=== PATIENT | female | born 1950 | race Caucasian/White ===

== ENCOUNTER 2018-03-15 16:04 | Inpatient (IN) | payer OTHER ==
--- NOTE | 2018-03-15 16:45 | EDPHY ---
H & P Stated Complaint: Leg swelling/fatigue/SOB Time Seen by Provider: 03/15/18 16:27 HPI/ROS: CHIEF COMPLAINT: Fatigue, shortness of breath HISTORY OF PRESENT ILLNESS: The patient is a 67-year-old female who denies significant past medical history. She reports having a fever and body aches around [place] time and states that she never fully recovered. She has had decreased appetite. She has been staying in bed. She feels weak and short of breath if she tries to get up and walk. No focal pain. No abdominal pain. No vomiting or GI symptoms. No headache. No chest pain. No shortness of breath at rest. No recent fevers. Has not noticed any blood in her stool. No urinary symptoms. No cancer history. Severity: Moderate Modifying factors: None REVIEW OF SYSTEMS: Constitutional: See HPI denies: chills, fever, recent illness, recent injury EENTM: denies: blurred vision, double vision, nose congestion Respiratory: denies: cough, shortness of breath Cardiac: denies: chest pain, irregular heart rate, lightheadedness, palpitations Gastrointestinal/Abdominal: denies: abdominal pain, diarrhea, nausea, vomiting, blood streaked stools Genitourinary: denies: dysuria, frequency, hematuria, pain Musculoskeletal: See HPI denies: joint pain, muscle pain Skin: denies: lesions, rash, jaundice, bruising Neurological: denies: headache, numbness, paresthesia, tingling, dizziness, weakness Hematologic/Lymphatic: denies: blood clots, easy bleeding, easy bruising Immunologic/allergic: denies: HIV/AIDS, transplant 10 systems reviewed and negative except as noted EXAM: GENERAL: Pale, no acute distress HEAD: Atraumatic, normocephalic. EYES: Pupils equal round and reactive to light, extraocular movements intact, sclera anicteric, conjunctiva pale. ENT: TMs normal, nares patent, oropharynx clear without exudates. Moist mucous membranes. NECK: Normal range of motion, supple without lymphadenopathy or JVD. LUNGS: Breath sounds clear to auscultation bilaterally and equal. No wheezes rales or rhonchi. HEART: Regular rate and rhythm without murmurs, rubs or gallops. ABDOMEN: Soft, nontender, normoactive bowel sounds. No guarding, no rebound. No masses appreciated. BACK: No CVA tenderness, no spinal tenderness, step-offs or deformities EXTREMITIES: Normal range of motion, mild 1+ pitting. No clubbing or cyanosis. NEUROLOGICAL: Cranial nerves II through XII grossly intact. Normal speech, normal gait. 5/5 strength, normal movement in all extremities, normal sensation , normal reflexes PSYCH: Normal mood, normal affect. SKIN: Extremely pale, Warm, dry, normal turgor, no visible rashes or lesions. Source: Patient, Family Exam Limitations: No limitations - Personal History Current Tetanus/Diphtheria Vaccine: No - Medical/Surgical History Hx Asthma: No Hx Chronic Respiratory Disease: No Hx Diabetes: No Hx Cardiac Disease: No Hx Renal Disease: No Hx Cirrhosis: No Hx Alcoholism: No Other PMH: Denies - Family History Significant Family History: No pertinent family hx - Social History Smoking Status: Never smoked Alcohol Use: None Constitutional: Initial Vital Signs Heart Rate 95 03/15/18 16:13 Respiratory Rate 18 03/15/18 16:13 Blood Pressure 127/47 H 03/15/18 16:13 O2 Sat (%) 100 03/15/18 16:13 O2 Delivery Mode Room Air Allergies/Adverse Reactions: amoxicillin Allergy (Verified 03/15/18 16:19) Home Medications: Medication Instructions Recorded Melatonin [Melatonin 3 MG (*)] 3 mg PO HS PRN 03/15/18 Medical Decision Making - Diagnostics EKG Interpretation: An EKG obtained and was read and documented in trace view. Please see trace view for full reading and report. Sinus rhythm, no acute ischemic changes no previous for comparison ED Course/Re-evaluation: The patient is significantly anemic as expected. I have ordered 2 units of blood for transfusion. Her rectal occult stool is negative. Will admit for further workup. I discussed the case with hospitalist who will admit. Bedside ultrasound does not reveal any significant cardiac effusion. Differential Diagnosis: Partial list of the Differential diagnosis considered include but were not limited to; rectal cancer, rectal bleed, myeloma, anemia, pericardial effusion and although unlikely based on the history and physical exam, I also considered infection, arrhythmia, acute coronary disease, CHF. - Data Points Laboratory Results: Laboratory Results 03/15/18 16:55 03/15/18 16:30 03/15/18 16:55 Smear Review By Mare NATARAJAN MD Medications Given: Ferrous Fumarate/Vit C/Docusate Sod (Tylor-Sequels 65 Mg) 1 each PO BID DIVINE Stop: 09/12/18 08:59 Last Admin: 03/16/18 10:18 Dose: 1 each Ferric Sodium Gluconate Complex 125 mg/ Sodium Chloride 110 mls @ 110 mls/hr IV DAILY DIVINE Stop: 09/12/18 08:59 Last Admin: 03/16/18 09:56 Dose: 110 mls Discontinued Medications Furosemide (Lasix Injection) 20 mg IVP ONCE ONE Stop: 03/16/18 13:57 Last Admin: 03/16/18 14:03 Dose: 20 mg Departure - Departure Disposition: [facility] Inpatient Acute Clinical Impression: Severe anemia Condition: Fair
[2018-03-15 16:52] LABS: INR 1.34 (0.83-1.16); PROTIME(PATIENT) 16.8 SEC (12.0-15.0)
--- NOTE | 2018-03-15 17:08 | CPEKG ---
Test Reason : OPEN Blood Pressure : / mmHG Vent. Rate : 089 BPM Atrial Rate : 089 BPM P-R Int : 165 ms QRS Dur : 097 ms QT Int : 406 ms P-R-T Axes : 062 048 -02 degrees QTc Int : 495 ms Sinus rhythm Probable left atrial enlargement Borderline T abnormalities, anterior leads Confirmed by Timoteo Maguire ([id number]) on 03/15/2018 5:07:12 PM Referred By: Timoteo Maguire Confirmed By:Timoteo Maguire
[2018-03-15 17:47] LABS: PLATELET COUNT 431 10^3/uL (150-400)
[2018-03-15] MEDS ORDERED: ONDANSETRON DISINTEGRATING 4 MG TAB PO PRN (18:03)
[2018-03-15] MEDS ORDERED: ACETAMINOPHEN 325 MG TAB PO PRN (18:03)
[2018-03-15] MEDS ORDERED: ONDANSETRON 4 MG/2 ML VIAL IVP PRN (18:03)
[2018-03-15] MEDS ORDERED: HYDROCODONE/APAP 5/325 TAB PO PRN (18:03)
[2018-03-15] MEDS ORDERED: MELATONIN 3 MG TAB PO PRN (22:51)
--- NOTE | 2018-03-16 01:19 | GHP ---
[f rep st] HISTORY AND PHYSICAL DATE OF ADMISSION: 03/15/2018 CHIEF COMPLAINT: Fatigue and shortness of breath. HISTORY OF PRESENT ILLNESS: The patient is a pleasant 67-year-old female with no major past medical history who presented to the [facility] Emergency Room with complaints of progressive fatigue over the past 4-6 weeks. She was found to have a hemoglobin of 2.5 with MCV of 61 and is be ing admitted for further evaluation. She does note a habit of chewing on ice over the past year. Sh kurtis denies any craving for dirt. Her notes that over the past 4-6 weeks she has been sleeping more and more sedentary. She had a Hemoccult performed in the emergency room, which was reportedly n egative. She does report a family history of colon cancer in 1 of her brothers when he was in his 20 s. PAST MEDICAL HISTORY: No major past medical history. PAST SURGICAL HISTORY: None. MEDICATIONS: None. ALLERGIES: Amoxicillin. FAMILY HISTORY: Patient reports a brother dying of colon cancer when he was in his 20s. SOCIAL HISTORY: The patient is currently . She has 2 children. She is a nonsmoker. 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 REVIEW OF SYSTEMS: CONSTITUTIONAL: Positive for fatigue and approximate 20 pounds weight loss over the prior months. ENT: No recent upper respiratory illnesses. CARDIOVASCULAR: No complaints of an y chest pains, palpitations, or syncopal episodes. RESPIRATORY: Positive for subjective shortness o f breath. GI: No focal abdominal pain. No bloody stools. No melena. : No reports of any diffi culty with urination. NEUROLOGIC: No complaints of any headaches or focal weakness. HEMATOLOGIC: No history of any deep vein thrombosis or pulmonary embolism. PSYCHIATRIC: No history of anxiety or depression. ENDOCRINE: No history of polyuria or heat intolerance. SKIN: No new skin rashes. MU SCULOSKELETAL: No focal joint pains. PHYSICAL EXAM: VITAL SIGNS: The patient is afebrile. Blood pressure 127/47, heart rate 95, respira tions 18, satting 100% on room air. GENERAL: Patient appears notably pale on exam but is awake, samantha rt, conversant, able to provide a good history. HEENT: Extraocular movements appear intact. No scl eral icterus is noted. Pale mucous membranes. NECK: Supple. No thyroid enlargement is appreciated . CHEST: Clear to auscultation with normal respiratory effort. HEART: Regular rate and rhythm. N o murmurs. ABDOMEN: Soft, nontender, nondistended. No splenomegaly. : No Ashby catheter in plac e. EXTREMITIES: Pitting edema noted of both ankles. NEUROLOGIC: Cranial nerves 2-12 appear grossl y intact with 5/5 strength in extremities. LABS: White blood cell count 8, hemoglobin 2.5, platelets 431, MCV 61. Sodium 133, potassium 3.8, c hloride 103, bicarb 116, BUN 12, creatinine 0.7, glucose 143 INR 1.3. AST 20, ALT 26, alkaline phosp hatase 176, bilirubin is 1.1, unconjugated bilirubin 0.7, lipase 126, albumin 3.4, total protein is 6 .3. Hemoccult negative. Vitamin B12 872, folate greater than 20. Ferritin 4.8, total iron binding capacity 394. Serum iron 14, iron saturation 4. IMAGING: Chest x-ray findings suggestive of heart failure/fluid overload, cardiomegaly, pulmonary va scular congestion and bilateral pleural effusions with bibasilar atelectasis. Superimposed pneumonia cannot be radiographically excluded. ASSESSMENT/PLAN: Anemia-patient presents with severe iron deficiency anemia. The source is uncertai n at the current time. She has normal white blood cell count and platelets are not low. Considering this, I do not think this would point to a primary bone marrow issue. I did review the case with Dr Mikhail Juárez with Hematology-Oncology and for now we will start replacing and supplementing iron and can plan on outpatient intravenous iron supplementation as well considering the severity of the anemia. I also reviewed her case with Dr. Estrada with gastroenterology in light of her family history of colon cancer with her brother having colon cancer in his 20s and dying from this. Even though her hemoccu lt here in the emergency room is negative, I do think endoscopy to obtain biopsies to look for celiac disease as well as colonoscopy would be prudent. We discussed that this could be done as an outpati ent or here in the hospital. I think if patient remains stable, this could be arranged for outpatien t. However, if patient is felt to be unreliable for outpatient followup we may want to consider yaquelin perez it while she is here in the hospital. I have started intravenous and oral iron today and 2 units o f blood has been ordered by the emergency room already. I recommend cautiously transfusing her as he r chest x-ray did suggest heart failure. DVT prophylaxis, compression devices. No heparin or Lovenox for now in light of concern for bleeding . DISPOSITION: I recommend admission under inpatient status considering her severe anemia and the fact we are transfusing blood and her chest x-ray shows potential for congestive heart failure, and I thi nk she will need close monitoring over the subsequent 2-3 days. /[id number]/MODL
[2018-03-16 05:06] LABS: PLATELET COUNT 260 10^3/uL (150-400)
[2018-03-16] MEDS: SODIUM FERRIC GLUCONAT/SUCROSE 125 MG in NS 100 ML IV SCH (09:56)
--- NOTE | 2018-03-16 09:56 | PDMN ---
Medical Necessity Medical necessity: [facility] M35 Anemia, Iron Deficiency or Unspecified, A-1 day: 67 yo c/o fatigue. Eval shows severe anemia w/ H/H 2.5/10.4, unclear etiology. PRBC transfusions and IV iron started, hem/onc and GI consults. Per MD IP admit for severe anemia and CXR which shows potential for CHF w/ transfusions. Close monitoring required over next 2-3 days.
--- NOTE | 2018-03-16 10:08 | HOSPPROG ---
Hospitalist Progress Note Assessment/Plan: Iron def anemia - presented with hgb 2.5, up to 4.4 after 2 units prbc's, receiving IV iron. Fortunately, she is hemodynamically stable. +fam hx colon cancer in brother, who in his 20's -cont transfusion until hgb >7, currently receiving unit #4, recheck h&h at 1400 -needs egd/colonoscopy, planning for tomorrow am -cont IV iron Hyponatremia - mild, improved with volume, likely was hypovolemic -follow ?HF - CXR pers reviewed/interp, suggestive of mild volume overload, BNP quite elevated and also note heart murmur -check echo to eval valves and LV function as we aggressively transfuse her -IV Lasix now Full code Dispo - cont inpt, needs ongoing transfusion, cardiac eval and further GI eval in am Subjective: Pt feels fine. Energy level much improved. Denies orthopnea or PND , but does endorse pedal edema. No CP or SOB at rest. Denies h/o BRBPR, melena , vaginal bleeding or vomiting. Note family h/o colon cancer in brother at age 20. Objective: Vital Signs Temp Pulse Resp BP Pulse Ox 36.7 C 78 24 H 133/70 H 95 03/16/18 09:11 03/16/18 09:11 03/16/18 09:11 03/16/18 09:11 03/16/18 09:11 Laboratory Results 03/16/18 04:30 03/16/18 04:30 03/15/18 03/16/18 03/17/18 05:59 05:59 05:59 Intake Total 450 Balance 450 PT 16.8 SEC (12.0-15.0) H 03/15/18 16:30 INR 1.34 (0.83-1.16) H 03/15/18 16:30 - Physical Exam Constitutional: no apparent distress Eyes: PERRL Ears, Nose, Mouth, Throat: moist mucous membranes Cardiovascular: regular rate and rhythym, systolic murmur Respiratory: no respiratory distress, clear to auscultation Gastrointestinal: normoactive bowel sounds, soft, non-tender abdomen Skin: warm Musculoskeletal: full muscle strength, other (1+ b/l pedal edema) Neurologic: AAOx3 Psychiatric: interacting appropriately ICD10 Worksheet Patient Problems: Problems Problem Status Onset Severe anemia Acute
[2018-03-16] MEDS: FERRO-SEQUELS 65 MG TAB.ER PO SCH ×2 (10:18→20:47)
[2018-03-16] MEDS ORDERED: PEG 3350/NA SULF,BICARB,CL/KCL (GAVILYTE-G) 4000 ML BTL PO ONE ×2 (10:52→17:00)
--- NOTE | 2018-03-16 11:48 | GCON ---
[f rep st] CONSULTATION DATE OF CONSULTATION: 03/16/2018 REFERRING PHYSICIAN: Umesh Young MD CHIEF COMPLAINT: Anemia, iron deficiency. Dear Dr. Young: Thank you very kindly for asking me to evaluate Mrs. Micheline Lucas in consultation for a chief complaint of iron-deficiency anemia. This is new onset. She has no real significant past medical history and presents to the emergency room mostly with progressive fatigue and difficulty with breathing that calixto s been present ever since [place], but worsening. She tried to have a vacation up in [place] with her family for her anniversary but was super fatigued and could not really function wel l. This has been worsening, and so she presents to the ER for evaluation. She was found to have a h emoglobin on admission in the ER of 2.5 with a hematocrit of 10.4, an MCV of 61.5, and a normal white blood count and a slightly elevated platelet count. This is all consistent with an iron-deficiency anemia. She denies any real gastrointestinal symptoms, specifically denying heartburn or dysphagia. There has been no abdominal pain, no melena or hematochezia. She does have chronic constipation whi ch has been unchanged. She has a family history of colon cancer in her brother at an early age of on set in his 50s. She supposedly had a colonoscopy in her early 50s that she says was normal. She has been receiving blood since admission, and her hematocrit this morning is 15.2. She still complains of feeling very fatigued. I am asked to assist with further evaluation and management. PAST MEDICAL HISTORY: Significant for 2 vaginal births. She has had 2 benign breast lumpectomies. PAST SURGICAL HISTORY: A colonoscopy reportedly in her early 50s, which was normal. 2 breast biopsi es which were benign. MEDICATIONS: On admission are none other than melatonin. She occasionally takes an [id number] laxative for constipation. ALLERGIES: To amoxicillin, which caused hives. FAMILY HISTORY: Significant for colon cancer in a brother in his early 50s. No history of anemia or celiac disease. REVIEW OF SYSTEMS: CONSTITUTIONAL: Fatigue. She had had a fever over [place] and reportedly had "the flu." She thinks this has resolved. PULMONARY: A bit of shortness of breath at rest and worse with exertion. CARDIOVASCULAR: She denies any palpitations. She denies any orthopnea. No chest p ain, no palpitations. GI: Chronic constipation. She denies melena, hematochezia, heartburn, dyspha ashvin, or abdominal pain. There has been no diarrhea. RHEUMATOLOGIC: Negative for joint pain. DERMA TOLOGIC: Negative for jaundice. NEURO: Negative for focal motor weakness. She does feel diffusely weak. No seizure activity. No falls. No headache. No visual disturbance. ENDOCRINE: No heat or cold intolerance. No neck pain. No history of thyroid problems. GENITOURINARY: She denies any fl ank pain or hematuria. GYNECOLOGIC: Denies vaginal bleeding. LYMPH: Denies any adenopathy or glan dular swelling. SOCIAL HISTORY: No tobacco, no alcohol. 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 She is . She has twins. She lives in [place] with her family. PHYSICAL EXAM: VITAL SIGNS: Blood pressure is 121/65, heart rate 77, oxygenation is 97% on 1 L nasa l cannula with a respiratory rate of 18, temperature is 36.8. GENERAL: Somewhat fatigued-appearing elderly female in no acute distress. HEENT: Normocephalic, atraumatic. Sclerae anicteric. No cinthia tuan petechiae. Gingival mucosa is normal without hypertrophy. NECK: Supple without adenopathy. No thyromegaly. No jugular venous distention or bruit. PULMONARY: Clear to auscultation bilaterally without rales or wheeze. CARDIOVASCULAR: Regular rate and rhythm. No murmur, rub, or gallop. GI: Abdomen is soft, nondistended. No ascites. No organomegaly. No palpable mass or lesion. No tende rness, rebound, or guarding. No herniation. MUSCULOSKELETAL: No joint deformity, swelling, or warm th. DERMATOLOGIC: No jaundice. No rash. No hives. No arterial venous malformations. NEURO: Meg rt to person, place, and time. Cranial nerves seem grossly intact. Speech is fluent, and mood is ap propriate. Motor exam is nonfocal. LABORATORY DATA: Database includes the following: This morning's white blood count is 5.6, hematocr it is 15.2 after transfusion, platelets are 260. Sodium 134, potassium 3.7, chloride 106, bicarbonat e 23, BUN 12, creatinine 0.7, calcium 8.1, iron is 14 with a ferritin of 4.8, and a percent iron satu ration of 4. Alkaline phosphatase is elevated at 176. Total bilirubin is 1.1, AST 20, ALT 26, album in 3.4, total protein 6.2. Lipase is 126. Vitamin B12 is 872. Folate is greater than 20. TSH is 2 .5. Serum protein electrophoresis is pending. Stool is negative for occult blood. Urinalysis is ne gative for blood. INR is 1.34 with a PT of 16.8. IMPRESSION: 1. Anemia, microcytic and consistent with iron deficiency. 2. Low albumin and total protein. 3. Mild coagulopathy. 4. Fatigue, likely secondary to new-onset anemia, that is quite profound. RECOMMENDATIONS: 1. Transfusion to a hematocrit of close to 25 would be preferable. 2. Diet is as tolerated. 3. She will require iron supplementation after transfusion. IV iron loading can be considered, alth ough the transfusions will likely provide her with a good iron source. 4. The etiology of her iron-deficiency anemia is unknown but will require upper endoscopy with small -bowel biopsies and a colonoscopy, especially in light of her family history of colon cancer in a 1st degree relative. 5. I have recommended that she perform these procedures while hospitalized to expedite her care, but she is considering going home after transfusion and scheduling these as an outpatient, which I can c ertainly arrange early next week and is acceptable as long as she feels clinically well enough and he r hematocrit responds to transfusion, especially as there is no active bleeding. 6. It is unclear how long she has been iron deficient. She has had no blood work last year and does not have a routine primary care, so this may be more of an sfuvc-[id number]-[id number] exacerbation of her symp toms. 7. It does not appear that she has other bone marrow cell lines that are abnormal, but a myelodyspla stic syndrome or other bone marrow process is also a possibility and may require hematology consultat ion if we are unable to find the source endoscopically. 8. For now, Mrs. Lucas would like to talk this over with her family, predominantly her , and s he will make decisions about the timing of her intervention. If she would like to proceed with these evaluations while hospitalized, I have asked the primary team to call me, and we will arrange for he r diet and bowel preparation. 9. I have discussed this with her primary team today, Dr. Umesh Young. 10. Thank you for allowing me to be involved in her care. Further recommendations to follow. /[id number]/MODL
--- NOTE | 2018-03-16 13:04 | ECHO ---
[email or web address] [address] Main: [phone] Fax: [email or web address] Echocardiogram Name: BEV FRENCH MR#: [id number] Study Date: 03/16/2018 Study Time: 08:46 AM Date of : 1950 Age: 67 year(s) Height: 157.5 cm (62 in.) Weight: 63.5 kg (140 lb.) BSA: 1.64 m2 Gender: Female Examination: Echo Indication: CXR suggests HF/receiving transfusions/eval LV function Image Quality: Excellent Contrast: Requested by: Obdulia Kelly BP: 124 mmHg/65 mmHg Heart Rate: Rhythm: Indication: CXR suggests HF/receiving transfusions/eval LV function Procedure Staff Chorus Dancer: Patricia Snell RD Reading Physician: Uvaldo Loya MD Requesting Provider: Conclusions: Mild concentric LV hypertrophy. Normal global systolic LV function. The ejection fraction is estimated to be 55-60 %. Diastolic dysfunction is present. . Upper normal size right ventricle. The left atrium is severely dilated. Cannot R/O PFO noted by color flow doppler.. The right atrium is moderately to severely dilated. Moderate to severe mitral regurgitation. Mod to severe calcified posterior mitral leaflet. MRO .31cm2. Moderate to severe tricuspid valve regurgitation. RVSP is 41mmHG.. Measurements: Chambers Valvular Assessment AV/MV Valvular Assessment TV/PV Normal Normal Normal Name Value Range Name Value Range Name Value Range Ao Julia (MM): 3.0 cm (2.2 cm-3.7 AV Vmax: 1.38 m/s (1 m/s-1.7 TR Vmax: 3.26 mm/s ( - ) cm) m/s) TR PGmax: 43 mmHg ( - ) IVSd (2D): 1.1 cm (0.6 cm-1.1 AV meanP mmHg ( - ) syst. PAP: 53 mmHg ( - ) cm) BETTY (VTI): 2.7 cm ( - ) LVDd (2D): 5.5 cm (3.9 cm-5.3 MV E Vmax: 1.11 m/s ( - ) cm) MV A Vmax: 0.87 m/s ( - ) LVDs (2D): 3.4 cm (2.1 cm-4 MV E/A: 1.28 ( - ) cm) MV meanP mmHg ( - ) LVPWd (2D): 1.2 cm ( - ) MVA (Vmax): 2.5 m/s ( - ) LVOTd 2.1 cm 2.1 cm mm LVEF (BP): 59 % (>=55 %) EF Range: 55-60 % Patient: BEV FRENCH Study Date: 03/16/2018 Page 1 of 2 08:46 AM Continued Measurements: Chambers Valvular Assessment AV/MV Valvular Assessment TV/PV Name Value Name Value Name Value LADs: 5.0 cm MV Annulus: 3.8 cm CVP (est.): 10 mmHg LADs Lon.1 cm MV E' Septal: 0.06 m/s LA Area: 31.1 cm2 MV E/E' Septal: 18.10 LA Volume: 114 ml MV E/E' Lateral: 11.00 LA Volume Index: 69.5 ml/m2 MV VTI: 30.70 cm MR Vena Contracta: 0.4 cm MR ERO: 0.310 cm2 MR PISA radius: 9 mm MR Reg. Volume: 62 ml MR Reg. Fraction: 18 % Additional Vessels Name Value Ao Ascendin.3 cm Findings: Left Ventricle: Normal size left ventricle. Mild concentric LV hypertrophy. Normal global systolic LV function. The ejection fraction is estimated to be 55-60 %. Diastolic dysfunction is present. . Right Ventricle: Upper normal size right ventricle. Left Atrium: The left atrium is severely dilated. Cannot R/O PFO noted by color flow doppler.. Right Atrium: The right atrium is moderately to severely dilated. Mitral Valve: Moderate to severe mitral regurgitation. Mod to severe calcified posterior mitral leaflet. MRO .31cm2. Aortic Valve: The aortic valve is normal in appearance and function. The aortic valve is tri-leaflet. There is no aortic valve regurgitation. Tricuspid Valve: The tricuspid valve is normal in appearance and function. Moderate to severe tricuspid valve regurgitation. The pulmonary artery pressure is mildly increased. RVSP is 41mmHG.. Pulmonic Valve: The pulmonic valve is normal in appearance and function. Trivial pulmonic valve regurgitation. Aorta: The aorta is normal. Pericardium: No pericardial effusion. Left side pleural effusion. (No Signature Object) Patient: BEV FRNECH Study Date: 03/16/2018 Page 2 of 2 08:46 AM [id number]
[2018-03-16] MEDS ORDERED: FUROSEMIDE 20 MG/2 ML VIAL IVP ONE (13:56)
--- NOTE | 2018-03-16 14:34 | GCON ---
[f rep st] CONSULTATION HEMATOLOGY ONCOLOGY CONSULTATION NOTE REASON FOR CONSULTATION: Severe microcytic anemia. HISTORY OF PRESENT ILLNESS: The patient is a very pleasant 67-year-old female who is admitted for further evaluation of severe microcytic anemia. Generally, the patient has not been under recent medical care. She presented to the emergency room last evening with symptoms of increasing fatigue. This particularly was more severe over the last 6 weeks and even more so over the last week. On presentation, she was found to have a normal white blood cell count and normal differential with a hemoglobin of 2.5 and an MCV of 61 and a hematocrit of 10. Her platelet count was slightly elevated. She denied any abdominal pain or any GI symptoms. There has been no history of blood loss. She denies any vaginal bleeding or hematuria. She denies any significant weight loss in the last 6 months. No fever, no night sweats. Hemoccult in the emergency room was negative. She denies any chest pain. She has some mild dyspnea with exertion. She was given 2 units of blood last evening and is currently receiving IV iron. She was given an additional 2 units early this morning. PAST MEDICAL HISTORY: Unremarkable. PAST SURGICAL HISTORY: Unremarkable. FAMILY HISTORY: Her brother had colon cancer in his 20s. He is currently in his 60s and alive and well. SOCIAL HISTORY: She is . 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 She has 2 children. She is a nonsmoker. REVIEW OF SYSTEMS: CONSTITUTIONAL: Notable for fatigue and weight loss a while ago that was more intentional as she was preparing for a wedding, but in the last several months there has been no weight loss. CARDIOVASCULAR: No chest pain. RESPIRATORY: Some dyspnea with exertion. GI: As per HPI, negative. MUSCULOSKELETAL: No bone pain. PHYSICAL EXAM: GENERAL: She is very comfortable, alert appearing female sitting in bed. VITAL SIGNS: Blood pressure is 114/56. Heart rate 85. O2 sat is 91% on room air. HEENT: Pupils equal. Sclerae anicteric. Oropharynx is clear. NECK: Supple with significant bilateral JVD. LUNGS: With bilateral crackles. HEART: Regular rate with 2/6 systolic murmur. ABDOMEN: Soft, nontender. No organomegaly. EXTREMITIES: 1+ edema. LABORATORY DATA: White blood cell count 5.6, hematocrit 15.2, platelet count 260 (it was 431 last night). The smear is notable for 3+ microcytic cells, 1+ schistocytes, 1+ keratocytes, 3+ hypochromia. Ferritin is 4.8, iron is 14, TIBC 394, 4% saturation. IMPRESSION: This is a 67-year-old female who presents with severe microcytic anemia with indices most consistent with iron deficiency. Of note, her B12 level is normal as is her folate. SPEP is pending. The normal white blood cell count and slightly elevated platelet count argues somewhat against an underlying bone marrow disorder. I explained to the patient and her family that I would expect complete normalization of the CBC as she gets replaced with iron in the coming weeks. If we do not see that, then a bone marrow biopsy would be a consideration. She appears to have some volume overload with the recent blood transfusions and will be getting an echocardiogram as well as diuresis. Her brother's history of colon cancer in his 20s is very suspicious for a Short syndrome picture. The patient should have an EGD and colonoscopy and if that is negative, then a small bowel capsule endoscopy. Whether or not this will be done in the hospital or as an outpatient is yet to be determined. She potentially could have an underlying malignancy as the cause of the anemia and iron deficiency. We will continue to follow along with you. /[id number]/MODL MTDD
--- NOTE | 2018-03-16 16:05 | ASMTCMCOM ---
CM Note CM Note Notes: 03/16/2018 Case Management Note Reviewed chart. Pt admitted for treatment of severe anemia. There are no therapy evals ordered at this time. Discharge needs and date are unclear at this time. Pt is and was independent with ADL's prior to admission. Anticipating independent discharge with follow up as directed. Case Management d/c poc: to be determined. Case Management to follow Date Signed: 03/16/2018 04:05 PM Electronically Signed By:Debbie Mtz RN
[2018-03-17 05:23] LABS: PLATELET COUNT 260 10^3/uL (150-400)
[2018-03-17] MEDS ORDERED: PEG 3350/NA SULF,BICARB,CL/KCL (GAVILYTE-G) 4000 ML BTL PO ONE (06:00)
[2018-03-17] MEDS: FERRO-SEQUELS 65 MG TAB.ER PO SCH ×2 (08:32→21:19)
[2018-03-17] MEDS: SODIUM FERRIC GLUCONAT/SUCROSE 125 MG in NS 100 ML IV SCH (08:32)
[2018-03-17] MEDS ORDERED: FUROSEMIDE 20 MG/2 ML VIAL IVP ONE (09:02)
--- NOTE | 2018-03-17 09:04 | HOSPPROG ---
Hospitalist Progress Note Assessment/Plan: Severe iron def anemia - presented with hgb 2.5, up to 7.2 after 4 units prbc' s. No e/o active bleeding. Fortunately, she has been hemodynamically stable. +fam hx colon cancer in brother, who in his 20's -cont IV iron -EGD/colonoscopy planned, discussed with Dr. Estrada, will defer procedure to tomorrow when cardiac/respiratory status is better optimized -clear liquids today, mag citrate tonight to complete prep, will follow and replace lytes Acute diastolic HF - BNP elevated with e/o volume overload on presenting CXR ( pers reviewed/inter). She still has crackles and JVD today, s/p IV lasix yest. Echo showed diastolic dysfunction, nl EF. -repeat IV Lasix, add oral K plus protocol -monitor I&O's, daily wts -cardiology to consult Hypoxemia - 2/2 above -diurese as above, wean O2 as able VHD - mod-severe MR and TR on echo -cardiology to consult today, discussed case with Dr. Loya Hyponatremia - mild, improved with volume, likely was hypovolemic -follow Full code Dispo - cont inpt, needs further cardiac and GI evaluations Subjective: Pt doing ok, on 2 LPM O2 this am. SHe appears SOB, but notes "it's this building". Denies orthopnea or PND, but she appears a bit orthopneic. No CP. Tolerating bowel prep. Says pedal edema is better. Objective: Vital Signs Temp Pulse Resp BP Pulse Ox 36.8 C 85 20 120/63 92 03/17/18 03:54 03/17/18 03:54 03/17/18 03:54 03/17/18 03:54 03/17/18 03:54 Laboratory Results 03/17/18 03:35 03/17/18 03:35 03/16/18 03/17/18 03/18/18 05:59 05:59 05:59 Intake Total 450 1500 Output Total 800 Balance 450 700 PT 16.8 SEC (12.0-15.0) H 03/15/18 16:30 INR 1.34 (0.83-1.16) H 03/15/18 16:30 - Physical Exam Constitutional: no apparent distress Eyes: PERRL Ears, Nose, Mouth, Throat: moist mucous membranes Cardiovascular: regular rate and rhythym, JVD Respiratory: no respiratory distress, inspiratory crackles Gastrointestinal: normoactive bowel sounds, soft, non-tender abdomen Skin: warm Musculoskeletal: full muscle strength Neurologic: AAOx3 Psychiatric: interacting appropriately ICD10 Worksheet Patient Problems: Problems Problem Status Onset Severe anemia Acute
[2018-03-17] MEDS ORDERED: PROTOCOL POTASSIUM 1 DOSE MISC PRN (09:08)
[2018-03-17] MEDS ORDERED: PROTOCOL MAGNESIUM 1 DOSE IV PRN (09:11)
[2018-03-17] MEDS ORDERED: POTASSIUM CL 20 MEQ TAB PO SCH (09:30)
--- NOTE | 2018-03-17 10:20 | SOAPPROG ---
KEERTHI Progress Note Assessment/Plan: Assessment: 1. Severe iron deficiency anemia-s/p 4 units PRBC and two doses of IV iron 2. CHF with severe MR-exacerbated by transfusions. 3. Family history of sibling with colon cancer in his 20's, suspicious for Short syndrome. Plan: 1. Hold on further RBC transfusions. 2. Volume overload-per hospitalist/cardiology. 3. EGD and colonoscopy-if negative, small bowel capsule endoscopy. 4. Will need additional IV iron as outpatient. 5. Consider DVT prophylaxis 03/17/18 10:17 03/17/18 10:22 Subjective: frustrated, feeling SOB, Objective: Vital Signs Temp Pulse Resp BP Pulse Ox 36.8 C 85 20 120/63 92 03/17/18 03:54 03/17/18 03:54 03/17/18 03:54 03/17/18 03:54 03/17/18 03:54 Laboratory Results 03/17/18 03:35 03/17/18 09:11 03/16/18 03/17/18 03/18/18 05:59 05:59 05:59 Intake Total 450 1500 Output Total 800 Balance 450 700 PT 16.8 SEC (12.0-15.0) H 03/15/18 16:30 INR 1.34 (0.83-1.16) H 03/15/18 16:30 Physical Exam - Physical Exam General Appearance: alert, no apparent distress Neck: other (JVD) Respiratory: other (decreased BS at bases with bilateral crackles) Abdomen: soft ICD10 Worksheet Patient Problems: Problems Problem Status Onset Severe anemia Acute
[2018-03-17] MEDS ORDERED: POTASSIUM CL 10 MEQ TAB PO ONE ×2 (10:27→18:58)
[2018-03-17] MEDS ORDERED: FUROSEMIDE 40 MG/4 ML VIAL IVP ONE ×2 (10:30→13:00)
--- NOTE | 2018-03-17 10:41 | SOAPPROG ---
SOAP Progress Note Assessment/Plan: Assessment: 1. YAMILE 2. Dyspnea 3. CHF Plan: 1. Cardiology consult today 2. Diuresis 3. Cancel EGD/Colonoscopy for today. Will tentatively plan for tomorrow AM 4. Clears today 5. IV iron infusion 6. AM CBC 7. Mgcitrate in AM to help make sure her bowel cleanse is good 8. Check AM lytes, Mg and phos. 9. NPO after midnight. 03/17/18 10:38 Subjective: CC: SOB No acute events. Upset that her procedures were postponed No hematochezia or melena. Prep is mostly clear this AM Objective: Vital Signs Temp Pulse Resp BP Pulse Ox 36.8 C 85 20 120/63 92 03/17/18 03:54 03/17/18 03:54 03/17/18 03:54 03/17/18 03:54 03/17/18 03:54 Laboratory Results 03/17/18 03:35 03/17/18 09:11 03/16/18 03/17/18 03/18/18 05:59 05:59 05:59 Intake Total 450 1500 Output Total 800 Balance 450 700 PT 16.8 SEC (12.0-15.0) H 03/15/18 16:30 INR 1.34 (0.83-1.16) H 03/15/18 16:30 Physical Exam - Physical Exam General Appearance: no apparent distress EENT: pharynx normal Neck: other (Elevated JVD) Respiratory: rales Cardiac/Chest: regular rate, rhythm, systolic murmur Abdomen: normal bowel sounds, non-tender, soft ICD10 Worksheet Patient Problems: Problems Problem Status Onset Severe anemia Acute
[2018-03-17] MEDS ORDERED: POTASSIUM CL 20 MEQ/15 ML UDCUP PO ONE (11:00)
--- NOTE | 2018-03-17 11:16 | GCON ---
[f rep st] CONSULTATION CARDIOLOGY CONSULTATION SUPERVISING SAMPLE HAND: Uvaldo Loya MD REASON FOR CONSULTATION: [id number] MR, fluid volume overload. HISTORY OF PRESENT ILLNESS: Patient is a pleasant 67-year-old female who presented to the ED 03/15/2018 for further evaluation of persistent weakness and fatigue. Symptoms started roughly 2 months ago after what she describes as flu- like symptoms ongoing for several weeks. After resolution of her flu-like symptoms, she reports that she never returned to baseline and continued to note reduced activity tolerance and generalized weakness and fatigue, which has been progressive over time. When she presented to the emergency department, her hemoglobin was 2.5, hematocrit 10, with an MCV of 61. Echocardiogram demonstrated LVEF 55% to 60%, severe left atrial dilation, [id number] MR, and moderate TR with right ventricular systolic pressure measuring 41 mmHg. She has had 4 units of packed red blood cells and 2 doses of IV iron for management of her severe iron deficiency anemia this hospitalization. EGD and colonoscopy have been ordered for further evaluation of her anemia. She also has symptoms of fluid volume overload, which has been exacerbated by transfusions. Prior to the onset of her fatigue and weakness in January, she denies any previous cardiovascular issues or concerns. She has no history of chest discomfort, dyspnea (until recently), orthopnea, palpitations, lightheadedness, dizziness, syncope, or presyncope. She has had BLE pitting edema for the past several weeks. PAST MEDICAL HISTORY: Unremarkable. PAST SURGICAL HISTORY: Unremarkable. FAMILY HISTORY: No familial cardiovascular history. 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 She is close to half-way. REVIEW OF SYSTEMS: GENERAL/CONSTITUTIONAL: Positive for fatigue and weakness. CARDIOVASCULAR: No chest discomfort, mild dyspnea. No orthopnea. BLE edema for the past several weeks. RESPIRATORY: [id number] dyspnea on exertion and at rest. She notes that her respiratory symptoms are worse with the dry air in hospital. GI: No abdominal pain or GI symptoms, and no history of blood loss. MUSCULOSKELETAL: Normal range of motion. No tenderness or discomfort. PHYSICAL EXAM: GENERAL: She is alert and oriented x4, in no apparent distress. VITAL SIGNS: Blood pressure 120/63, heart rate 85, respiratory rate 20, SpO2 92% on 2 L nasal cannula, temp 36.8 degrees Celsius. CARDIOVASCULAR: Regular rate and rhythm, S1, S2. No S3 or S4. Presence of a 2/6 systolic murmur with significant bilateral jugular venous distention. RESPIRATORY: Bilateral crackles. ABDOMEN: Soft, nontender. EXTREMITIES: 1+ bilateral lower extremity pitting edema. LABORATORY STUDIES: Drawn today: RBC 3.04, hemoglobin 7.1, hematocrit 23.1. Potassium 3.0, BMP otherwise stable. BNP 03/16 was 3370. IMPRESSION: 67-year-old female with severe microcytic anemia and moderate-to- severe mitral regurgitation with high demand congestive heart failure and fluid volume overload. PLAN: 1. Continue to diurese with Lasix 40 mg twice daily and continue to monitor electrolytes and fluid volume status. 2. Hold on EGD and colonoscopy this morning in the setting of marked fluid volume overload. Plan to re-evaluate tomorrow morning regarding endoscopy and colonoscopy given her fluid volume status at that time. 3. Plan to repeat echocardiogram when her hemoglobin is closer to 10 to re- evaluate MR at that time. 4. Cardiology will continue to follow. TIME SPENT ON CONSULTATION: Greater than 30 minutes. /[id number]/MODL MTDD
[2018-03-17] MEDS ORDERED: MAGNESIUM CITRATE 300 ML BOTTLE PO ONE (19:00)
[2018-03-18 05:23] LABS: PLATELET COUNT 215 10^3/uL (150-400)
[2018-03-18] MEDS ORDERED: MAGNESIUM CITRATE 300 ML BOTTLE PO ONE (06:00)
[2018-03-18] MEDS ORDERED: POTASSIUM CL 20 MEQ/15 ML UDCUP PO ONE ×2 (06:37→20:30)
--- NOTE | 2018-03-18 08:23 | HOSPPROG ---
Hospitalist Progress Note Assessment/Plan: Severe iron def anemia - presented with hgb 2.5, up to 7.7 after 4 units prbc' s. No e/o active bleeding. Fortunately, she has been hemodynamically stable. +fam hx colon cancer in brother, who in his 20's -cont IV iron -EGD/colonoscopy planned and pt is prepped. I recommend deferring this to outpt setting and tuning up her cardiopulmonary status given e/o ongoing volume overload with JVD, hypoxemia, and electrolyte abnormalities -defer further transfusions for now Acute diastolic HF - BNP was 3370 with e/o volume overload on presenting CXR ( pers reviewed/inter). Echo showed diastolic dysfunction, nl EF. She still has JVD and hypoxemia, s/p 80 mg IV lasix yest. Net neg 3.2 L overnight. Wt down 2.5 kg. -needs ongoing diuresis, cont IV Lasix 40 mg once daily -repeat bnp in am -recommend deferring procedure as above, will await cardiology eval for clearance / recs regarding timing of procedure -cont to monitor I&O's, daily wts Hypoxemia - 2/2 above, on 2 LPM this am -diurese as above, wean O2 as able VHD - mod-severe MR and TR on echo -cardiology following Hypokalemia - 2/2 diuresis -schedule potassium and cont to replace per protocol Hyponatremia - resolved Full code Dispo - cont inpt, needs further cardiac stabilization Subjective: Pt feels better. Denies CP, SOB or orthopnea. Note she seems to minimize symptoms, focuses on how healthy and active she generally is. Pedal edema better. No bloody stools or melena. No N/V. She is NPO, prepped for EGD /colonoscopy. Objective: Vital Signs Temp Pulse Resp BP Pulse Ox 36.8 C 91 18 126/69 H 93 03/18/18 07:40 03/18/18 07:40 03/18/18 07:40 03/18/18 07:40 03/18/18 07:40 Laboratory Results 03/18/18 03:35 03/18/18 03:35 03/17/18 03/18/18 03/19/18 05:59 05:59 05:59 Intake Total 1500 615 Output Total 800 3900 Balance 700 -3285 PT 16.8 SEC (12.0-15.0) H 03/15/18 16:30 INR 1.34 (0.83-1.16) H 03/15/18 16:30 - Physical Exam Constitutional: no apparent distress Eyes: PERRL Ears, Nose, Mouth, Throat: moist mucous membranes Cardiovascular: regular rate and rhythym, JVD Respiratory: no respiratory distress, reduced air movement Gastrointestinal: normoactive bowel sounds, soft, non-tender abdomen Skin: warm Musculoskeletal: full muscle strength Neurologic: AAOx3 Psychiatric: interacting appropriately ICD10 Worksheet Patient Problems: Problems Problem Status Onset Severe anemia Acute
--- NOTE | 2018-03-18 08:53 | PDANEPAE ---
ANE History of Present Illness here for EGD ANE Past Medical History - Pulmonary History Hx Oxygen in Use at Home: No Hx Sleep Apnea: No Sleep Apnea Screening Result - Last Documented: Negative - Endocrine History Hx Diabetes: No - Chronic Pain History Chronic Pain: No ANE Review of Systems Review of Systems: ANE Patient History - Allergies Allergies/Adverse Reactions: amoxicillin Allergy (Verified 03/15/18 16:19) - Home Medications Home Medications: Melatonin [Melatonin 3 MG (*)] 3 mg PO HS PRN 03/15/18 [Last Taken Unknown] - NPO status NPO Since - Liquids (Date): 03/18/18 NPO Since - Liquids (Time): 06:00 NPO Since - Solids (Date): 03/16/18 NPO Since - Solids (Time): 00:01 - Smoking Hx Smoking Status: Never smoked - Alcohol Use Alcohol Use: None ANE Labs/Vital Signs - Labs Result Diagrams: 03/18/18 03:35 03/18/18 03:35 - Vital Signs Blood Pressure: 126/69 Heart Rate: 91 Respiratory Rate: 18 O2 Sat (%): 93 Height: 157.48 cm Weight: 67.8 kg
[2018-03-18] MEDS ORDERED: POTASSIUM CL 20 MEQ/15 ML UDCUP PO SCH ×2 (09:00→14:00)
[2018-03-18] MEDS ORDERED: MAGNESIUM SULF 1 GM/DEXTROSE 100 ML IV ONE (09:17)
--- NOTE | 2018-03-18 09:35 | SOAPPROG ---
KEERTHI Progress Note Assessment/Plan: Assessment: 1) Iron deficiency anemia 2) Family h/o colon cancer (Brother age 20) Plan: Good response to PRBC transfusion and Iron infusion x 2. No further transfusion needed currently. She feels much better. Plan EGD / Colonoscopy today to evaluate for source of blood loss. She could probably be d/c after her procedure either this evening or tomorrow morning. Will plan outpatient follow up once d/c to assess need for additional iron. Plan d/w patient 03/18/18 09:22 Subjective: Feels "much better" after transfusion and IV iron. EGD / Colon planned for today Objective: Vital Signs Temp Pulse Resp BP Pulse Ox 36.8 C 91 18 126/69 H 93 03/18/18 07:40 03/18/18 08:53 03/18/18 08:53 03/18/18 08:53 03/18/18 08:53 Laboratory Results 03/18/18 03:35 03/18/18 03:35 03/17/18 03/18/18 03/19/18 05:59 05:59 05:59 Intake Total 1500 615 Output Total 800 3900 Balance 700 -3285 PT 16.8 SEC (12.0-15.0) H 03/15/18 16:30 INR 1.34 (0.83-1.16) H 03/15/18 16:30 - Time Spent With Patient Time Spent With Patient: 20 minutes Physical Exam - Physical Exam General Appearance: alert, no apparent distress EENT: pale conjunctiva (R), pale conjunctiva (L) Neuro/Psych: alert, normal mood/affect ICD10 Worksheet Patient Problems: Problems Problem Status Onset Severe anemia Acute
[2018-03-18] MEDS: POTASSIUM CL 20 MEQ/15 ML UDCUP PO SCH ×3 (11:02→20:28)
[2018-03-18] MEDS: FUROSEMIDE 40 MG/4 ML VIAL IVP SCH (11:02)
[2018-03-18] MEDS: FERRO-SEQUELS 65 MG TAB.ER PO SCH ×2 (11:03→20:27)
[2018-03-18] MEDS: SODIUM FERRIC GLUCONAT/SUCROSE 125 MG in NS 100 ML IV SCH (11:03)
--- NOTE | 2018-03-18 13:09 | PDCARPN ---
Cardiology Progress Note Chief Complaint: N/A Assessment/Plan: Assessment: Micheline is a 67 y/o F who presented to the hospital with fatigue and was found to be severely anemic with a hemoglobin of 2.5. She was transfused with 4 units of PRBC and then developed diastolic CHF. A echo showed preserved LV function with moderate to severe MR and TR. Plan: 1. Diastolic CHF- secondary to blood tranfusions. Improved with IV Lasix but she is still mildly volume overloaded. Continue IV Lasix today. Will probably be able to transition to PO or d/c tomorrow. 2. Valvular heart disease- moderate to severe MR and TR. Repeat echo in when she is more hemodynamically stable. 3. Anemia, severe- s/p 4 PRBC. She need a EGD and colonoscopy which was scheduled for this morning. Given that she is still in heart failure with increased O2 needs and is hypokalemic I would recommend holding off on her procedure. I think it is possible that she would be ready tomorrow. 4. hypokalemia- on supplemental potassium 03/18/18 13:15 Subjective: She denies any CP, SOB, or palpitations. Her edema has resolved. Reviewed/Discussed With: hospitalist Objective: Vital Signs (8 Hrs) Temp Pulse Resp BP Pulse Ox 03/18/18 08:53 91 18 126/69 H 93 03/18/18 07:40 36.8 C 91 18 126/69 H 93 03/18/18 07:28 36.8 C 91 18 126/69 H 93 Intake/Output (24 Hrs) 03/17/18 03/18/18 03/19/18 05:59 05:59 05:59 Intake Total 1500 615 Output Total 800 3900 Balance 700 -3285 Intake: Oral (ml) 1500 615 Output: Urine (ml) 800 1400 Bedside Commode 400 Toilet 800 1000 Liquid Stool (ml) 2500 Bedside Commode 2500 Other: Weight 70.307 kg 67.8 kg Urine pH Toilet 7.0 Number of Voids Bedside Commode 3 Toilet 7 Number of Stools Bedside Commode 15 Result Diagrams: 03/18/18 03:35 03/18/18 03:35 Telemetry: NSR - Physical Exam Constitutional: no apparent distress Cardiovascular: regular rate and rhythm, systolic murmur Respiratory: inspiratory crackles (B bases R>L) Skin: no edema Neurologic: AAOx3 ICD10 Worksheet Patient Problems: Problems Problem Status Onset Severe anemia Acute
[2018-03-18] MEDS ORDERED: POTASSIUM CL 10 MEQ TAB PO ONE (20:02)
[2018-03-19] MEDS ORDERED: MAGNESIUM CITRATE 300 ML BOTTLE PO ONE (06:33)
--- NOTE | 2018-03-19 08:45 | HOSPPROG ---
Hospitalist Progress Note Assessment/Plan: Severe iron def anemia - presented with hgb 2.5, up to 8.1 after 4 units prbc' s. No e/o active bleeding. Fortunately, she has been hemodynamically stable. +fam hx colon cancer in brother, who in his 20's -s/p 3 days IV iron, will change to oral iron -EGD/colonoscopy has been postponed past couple of days due to acute heart failure, hypoxemia and hypokalemia, all improved today -stable for procedure today, s/p mag citrate this am -defer further transfusions for now Acute diastolic HF - BNP was 3370 with e/o volume overload on presenting CXR despite profoundly low circulating volume. Echo showed diastolic dysfunction, nl EF. Net neg 5. Wt down 3.5 kg. -cont IV Lasix 40 mg once daily, can likely change to oral lasix tomorrow -cont to monitor I&O's, daily wts Hypoxemia - 2/2 above, decreased O2 requirement, down to 1 LPM -diurese as above, wean O2 as able VHD - mod-severe MR and TR on echo -cardiology following -repeat echo as outpt in 2-3 months Hypokalemia - 2/2 diuresis, resolved with aggressive replacement -cont K supplement with lasix Hyponatremia - resolved Full code Dispo - cont inpt, possible d/c tomorrow if volume status improved Subjective: Pt feels well. Pedal edema resolved. Denies CP, SOB, orthopnea or PND. No bloody stools or melena, has been on clears past couple of days s/p bowel prep. Objective: Vital Signs Temp Pulse Resp BP Pulse Ox 36.7 C 81 16 119/62 94 03/19/18 04:00 03/19/18 04:00 03/19/18 04:00 03/19/18 04:00 03/19/18 04:00 Laboratory Results 03/19/18 03:25 03/19/18 03:25 03/18/18 03/19/18 03/20/18 05:59 05:59 05:59 Intake Total 615 740 Output Total 3900 2300 Balance -3285 -1560 PT 16.8 SEC (12.0-15.0) H 03/15/18 16:30 INR 1.34 (0.83-1.16) H 03/15/18 16:30 - Physical Exam Constitutional: no apparent distress Eyes: PERRL Ears, Nose, Mouth, Throat: moist mucous membranes Cardiovascular: regular rate and rhythym Respiratory: no respiratory distress Gastrointestinal: normoactive bowel sounds, soft, non-tender abdomen Skin: warm Musculoskeletal: full muscle strength Neurologic: AAOx3 Psychiatric: interacting appropriately ICD10 Worksheet Patient Problems: Problems Problem Status Onset Severe anemia Acute
[2018-03-19] MEDS ORDERED: FERROUS SULFATE 325 MG TAB PO SCH (09:00)
--- NOTE | 2018-03-19 10:23 | PDCARPN ---
Cardiology Progress Note Chief Complaint: N/A Assessment/Plan: Assessment: Micheline is a 67 y/o F who presented to the hospital with fatigue and was found to be severely anemic with a hemoglobin of 2.5. She was transfused with 4 units of PRBC and then developed diastolic CHF. A echo showed preserved LV function with moderate to severe MR and TR. Plan: 1. Diastolic CHF- secondary to blood transfusions. Improved with IV Lasix but she is still mildly volume overloaded. Continue IV Lasix today. 2. Valvular heart disease- moderate to severe MR and TR. Repeat echo when she is more hemodynamically stable. 3. Anemia, severe- s/p 4 PRBC. She is scheduled for a EGD and colonoscopy this morning. Her heart failure is improving and her potassium normalized. Ok to proceed from a cardiac standpoint. 4. hypokalemia- improved, on supplemental potassium 03/19/18 10:19 Subjective: She denies any CP or SOB. She is anxious to get her GI testing done. Objective: Vital Signs (8 Hrs) Temp Pulse Resp BP Pulse Ox 03/19/18 08:00 36.7 C 83 18 134/73 H 97 03/19/18 04:00 36.7 C 81 16 119/62 94 Intake/Output (24 Hrs) 03/18/18 03/19/18 03/20/18 05:59 05:59 05:59 Intake Total 615 740 Output Total 3900 2300 Balance -3285 -1560 Intake: Oral (ml) 615 740 Output: Urine (ml) 1400 250 Bedside Commode 400 Toilet 1000 250 Liquid Stool (ml) 2500 Bedside Commode 2500 Urine/Stool Mix (ml) 0 Bedside Commode 205 Other: Weight 67 kg Number of Voids Bedside Commode 3 Number of Stools Bedside Commode 15 Result Diagrams: 03/19/18 03:25 03/19/18 03:25 Telemetry: NSR - Physical Exam Constitutional: no apparent distress Cardiovascular: regular rate and rhythm, systolic murmur Respiratory: inspiratory crackles (B bases) Gastrointestinal: no tenderness, no masses Skin: no edema Neurologic: AAOx3 ICD10 Worksheet Patient Problems: Problems Problem Status Onset Severe anemia Acute
--- NOTE | 2018-03-19 10:49 | ASMTCMCOM ---
CM Note CM Note Notes: Chart reviewed for discharge planning purposes. Patient normally independent with ADL's admitted with profound anemia. 4 Units PRBC attributed to diastolic heart failure. Severe MR. GI workup deferred at this time. No current needs identified. CM available should needs arise. Plan: dc to home with family when medically cleared. Date Signed: 03/19/2018 10:48 AM Electronically Signed By:Libby Monreal RN
[2018-03-19] MEDS: FUROSEMIDE 40 MG/4 ML VIAL IVP SCH (11:09)
[2018-03-19] MEDS ORDERED: LR 1,000 ML IV ONE (12:38)
--- NOTE | 2018-03-19 12:48 | PDANEPAE ---
ANE History of Present Illness iron deficiency anemi. admitted to hospital on 03/16/18 with hgb of 2.5 ANE Past Medical History - Cardiovascular History Hx Hypertension: No Hx Arrhythmias: No Hx Chest Pain: No Hx Coronary Artery / Peripheral Vascular Disease: No Hx CHF / Valvular Disease: No Hx Palpitations: No - Pulmonary History Hx COPD: No Hx Asthma/Reactive Airway Disease: No Hx Recent Upper Respiratory Infection: No Hx Oxygen in Use at Home: No Hx Sleep Apnea: No Sleep Apnea Screening Result - Last Documented: Negative - Endocrine History Hx Diabetes: No Hypothyroid: No Hyperthyroid: No Obesity: no - Neurological & Psychiatric Hx Hx Neurological and Psychiatric Disorders: No - Other Health History Other Health History: iron deficiency anemia - Chronic Pain History Chronic Pain: No ANE Review of Systems Review of systems is: negative Review of Systems: - Exercise capacity Exercise capacity: >=4 METS ANE Patient History - Allergies Allergies/Adverse Reactions: amoxicillin Allergy (Verified 03/15/18 16:19) - Home Medications Home Medications: Melatonin [Melatonin 3 MG (*)] 3 mg PO HS PRN 03/15/18 [Last Taken Unknown] - NPO status NPO Status: no food or drink >8 hours NPO Since - Liquids (Date): 03/18/18 NPO Since - Liquids (Time): 06:00 NPO Since - Solids (Date): 03/16/18 NPO Since - Solids (Time): 00:01 - Anes Hx Anes Hx: no prior problems - Smoking Hx Smoking Status: Never smoked - Alcohol Use Alcohol Use: None - Family Anes Hx Family Anes Hx: none ANE Labs/Vital Signs - Labs Result Diagrams: 03/19/18 03:25 03/19/18 03:25 - Vital Signs Vital Signs: reviewed preoperatively; see RN documention for details Blood Pressure: 139/81 Heart Rate: 83 Respiratory Rate: 18 O2 Sat (%): 94 Height: 157.48 cm Weight: 67 kg ANE Physical Exam - Airway Neck exam: FROM Mallampati Score: Class 1 Mouth exam: normal dental/mouth exam - Pulmonary Pulmonary: no respiratory distress - Cardiovascular Cardiovascular: regular rate and rhythym - ASA Status ASA Status: II ANE Anesthesia Plan Anesthesia Plan: GA with mask
[2018-03-19] MEDS ORDERED: PROPOFOL/EMULSION 500 MG/50 ML BOTTLE IV ONE (13:01)
--- NOTE | 2018-03-19 13:53 | GIREPORT ---
[facility] - Endoscopy Department Patient Name: Micheline Lucas Procedure Date: 03/19/2018 1:00 PM Patient Type: Inpatient Attending MD/ ER Physician: Matheus Estrada MD Procedure: Upper GI endoscopy Indications: Iron deficiency anemia Providers: Matheus Estrada MD Medicines: Propofol per Anesthesia Complications: No immediate complications. Description of Procedure: After obtaining informed consent, the endoscope was passed under direct vision. Throughout the procedure, the patient's blood pressure, pulse, and oxygen saturations were monitored continuously. The Endoscope was intro duced through the mouth, and advanced to the second part of duodenum. [facility] er GI endoscopy was accomplished without difficulty. The patient tolerated th e procedure well. Findings: The esophagus was normal. A large hiatal hernia was present. Multiple dispersed, Linear non-bleeding erosions were found in the dash karla fundus. There were no stigmata of recent bleeding. These are consistent with Edmond's erosions related to the large hiatal hernia The duodenal bulb, first portion of the duodenum and second portion of the duodenum were normal. Biopsies for histology were taken with a cold for ceps for evaluation of celiac disease. Estimated Blood Loss: Estimated blood loss: none. Post Op Diagnosis: - Normal esophagus. - Large hiatal hernia. - Edmond's erosions. This is not felt to be clinically a good explanat ion for her iron deficiency anemia. - Normal duodenal bulb, first portion of the duodenum and second portio n of the duodenum. Biopsied. Recommendation: - Await pathology results. - Perform a colonoscopy today. - [facility]. - Thank you for allowing me to be involved in the care of your patient. Attending Participation: I personally performed the entire procedure without the assistance of a fellow, resident or surg ical nurses assistant. Matheus Estrada MD Matheus Estrada MD 03/19/2018 1:53:08 PM This report has been signed electronicallyDavid MD Natalie Number of Addenda: 0 Note Initiated On: 03/19/2018 1:00 PM [email or web address]
[2018-03-19] MEDS ORDERED: NALOXONE HCL 0.4 MG/ML INJ IVP PRN (13:55)
--- NOTE | 2018-03-19 14:27 | GIREPORT ---
[facility] - Endoscopy Department Patient Name: Micheline Lucas Procedure Date: 03/19/2018 1:01 PM Patient Type: Inpatient Attending MD/ ER Physician: Matheus Estrada MD Procedure: Colonoscopy Indications: Iron deficiency anemia Providers: Matheus Estrada MD Medicines: Propofol per Anesthesia Complications: No immediate complications. Description of Procedure: After obtaining informed consent, the scope was passed under direct vis ion. Throughout the procedure, the patient's blood pressure, pulse, and oxyg en saturations were monitored continuously. The Colonoscope was introduced through the anus and advanced to the terminal ileum. The colonoscopy wa s performed without difficulty. The patient tolerated the procedure well. The quality of the bowel preparation was good. The ileocecal valve, appendi ceal orifice, and rectum were photographed. Findings: The perianal and digital rectal examinations were normal. Pertinent negatives include normal sphincter tone and no palpable rectal lesions. The terminal ileum appeared normal. The entire examined colon appeared normal. Estimated Blood Loss: Estimated blood loss: none. Post Op Diagnosis: - The examined portion of the ileum was normal. - The entire examined colon is normal. - No specimens collected. Recommendation: - [facility]. - Advance diet as tolerated. - Repeat colonoscopy in 5 years for screening purposes (due to a family history of colon cancer in her brother). - To visualize the small bowel, perform video capsule endoscopy at an outpatient appointment to be scheduled. - Thank you for allowing me to be involved in the care of your patient. Attending Participation: I personally performed the entire procedure without the assistance of a fellow, resident or surg ical assistant purchasing manager. Matheus Estrada MD Matheus Estrada MD 03/19/2018 2:27:07 PM This report has been signed electronicallyDavid MD Natalie Number of Addenda: 0 Note Initiated On: 03/19/2018 1:01 PM Total Procedure Duration Time 0 hours 27 minutes 54 seconds [email or web address]
--- NOTE | 2018-03-19 15:08 | POSTANESTH ---
Post Anesthetic Evaluation Cardiovascular Status: Normal, Stable Respiratory Status: Normal, Stable Level of Consciousness/Mental Status: Can Participate in Eval Pain Control: Adequate, Prn Tx Ordered Nausea/Vomiting Control: Adequate, Prn Tx Ordered Complications Possibly Related to Anesthesia: None Noted
[2018-03-19] MEDS: POTASSIUM CL 20 MEQ/15 ML UDCUP PO SCH ×2 (15:30→15:34)
[2018-03-19] MEDS: FERRO-SEQUELS 65 MG TAB.ER PO SCH ×2 (15:34→21:04)
[2018-03-19] MEDS ORDERED: POTASSIUM CL 10 MEQ TAB PO ONE (20:50)
[2018-03-19] MEDS ORDERED: POTASSIUM CL 20 MEQ/15 ML UDCUP PO ONE (21:00)
[2018-03-20 07:45] VITALS: BP 132/69
[2018-03-20] MEDS ORDERED: FUROSEMIDE 40 MG TAB PO SCH (09:00)
[2018-03-20] MEDS ORDERED: POTASSIUM CL 20 MEQ/15 ML UDCUP PO SCH (09:00)
[2018-03-20] MEDS: FERRO-SEQUELS 65 MG TAB.ER PO SCH (09:10)
--- NOTE | 2018-03-20 10:23 | PDHOMEO2F ---
Home Oxygen Face to Face Home Orders: I certify that a physician or a nurse practitioner or physician's teachers assistant has had a [id number] encounter with this patient on the date of this order due to the diagnosis listed, which relates to the primary reason the patient requires home oxygen. Alternative treatments have been tried, or considered, and deemed ineffective. It is anticipated that supplemental oxygen will result in improvement with treatment. Home oxygen qualifying diagnosis: respiratory failure with hypoxia SpO2 on room air (%): 85 Frequency of home oxygen needed: continuous Home oxygen liters per minute: 1 Home oxygen delivery device: nasal cannula Concentrator: Yes E-tanks for mobility and back up: Yes If ordering portable O2, is the patient mobile in the home?: Yes I certify that, based on these findings, the home oxygen is medically necessary for this patient for the following length of time. Length of time home oxygen needed: 3 months
--- NOTE | 2018-03-20 10:45 | SOAPPROG ---
KEERTHI Progress Note Assessment/Plan: Assessment: 1) Iron deficiency anemia 2) Family h/o colon cancer (Brother age 20)-- colonoscopy is negative Plan: Good response to PRBC transfusion and Iron infusion x 2. No further transfusion needed currently. She feels better. EGD / Colonoscopy showed a hiatal hernia with ulceration, but no other findings. Capsule endoscopy planned as outpatient. She will be d/c home today. Will plan outpatient follow up once d/c to assess need for additional iron. Our office will contact her to schedule an outpatient follow up at [facility] next week. Additional IV iron could be given then if needed. She will be d/c on oral iron Plan d/w patient Subjective: Feels well. Plans to go home today. egd/colon no obvious source of blood loss at bedside Objective: Vital Signs Temp Pulse Resp BP Pulse Ox 36.6 C 86 18 132/69 H 89 L 03/20/18 07:43 03/20/18 07:43 03/20/18 07:43 03/20/18 07:43 03/20/18 07:43 Laboratory Results 03/19/18 03:25 03/20/18 03:40 03/19/18 03/20/18 03/21/18 05:59 05:59 05:59 Intake Total 740 1920 0 Output Total 2300 1600 Balance -1560 320 0 PT 16.8 SEC (12.0-15.0) H 03/15/18 16:30 INR 1.34 (0.83-1.16) H 03/15/18 16:30 - Time Spent With Patient Time Spent With Patient: 20 minutes Physical Exam - Physical Exam General Appearance: alert, no apparent distress EENT: PERRL/EOMI Skin: normal color Neuro/Psych: alert, normal mood/affect ICD10 Worksheet Patient Problems: Problems Problem Status Onset Severe anemia Acute
--- NOTE | 2018-03-20 12:26 | PDDCSUM ---
Discharge Summary Discharge Summary: Date of Admission: 03/15/2018 Date of Discharge: 03/20/2018 Consultants: GI, cardiology, hematology Studies/Procedures: 1. TTE 2. EGD 3. Colonoscopy Discharge Diagnoses: 1. Severe iron deficiency anemia of uncertain etiology 2. Acutely decompensated diastolic CHF 3. Valvular heart disease (severe MR and TR) 4. Acute hypoxia 2/2 pulmonary edema 4. Large hiatal hernia with Edmond erosions (not felt to be good explanation for #1) 5. Hypokalemia, resolved 6. Hyponatremia, resolved Brief Hospital Course: 67yo F with no significant PMH presented with 1-2 months of fatigue and shortness of breath. She was found to be severely anemic with a hemoglobin of 2.5 and MCV 61. She received 4 units PRBCs and 3 days of IV iron supplementation. GI was consulted. She underwent EGD and colonoscopy which were grossly unrevealing for a source (there were Edmond erosions associated with hiatal hernia but not felt to be etiology per GI). Her hemoglobin remained stable around 8 at time of discharge. Plan to follow up with GI for capsule endoscopy study. She needs repeat colonoscopy in 5 years given family history of colon cancer (brother in 20s). Additionally, her CXR on admission was consistent with pulmonary edema and she was hypoxic. BNP was elevated at 3300. An echocardiogram revealed diastolic dysfunction, preserved LVEF, and severe MR and TR. Her volume status worsened after receiving blood transfusions. Cardiology was consulted and she received IV lasix with improvement in her respiratory status however was still requiring 1L of supplemental oxygen at discharge. She was discharged on oral lasix. She will need a repeat echocardiogram as outpatient to re-assess valvular function. Medications: Please refer to EMR for complete list. I sent prescriptions for the following to her pharmacy: 1. Lasix 40mg daily 2. Potassium supplement (20 mEq daily) 3. Iron supplements twice daily Follow Up Plan: 1. Dr Mayo (cardiology) 2. Dr Alyce Juárez (hematology) 3. Dr Estrada (gastroenterology) 4. PCP Physical Exam: Vitals reviewed, stable. Alert and oriented, rrr with systolic murmur, diminished breath sounds at bilateral bases, abdomen soft and nt, no leg edema, no JVD, no rashes.
--- NOTE | 2018-03-20 12:33 | ASDISCHSUM ---
Discharge Information Plan Status:Home with No Needs Medically Cleared to Leave:03/19/2018 Discharge Date:03/19/2018 CM D/C Disposition:Home, Routine, Self-Care ADT D/C Disposition:Home, Routine, Self-Care Projected Discharge Date:03/19/2018 Transportation at D/C: Discharge Delay Reason: Follow-Up Date:03/19/2018 Discharge Slot: Final Diagnosis: Placement Information Patient Contact Information Contact Name:ZAHRA Relationship:Ousmane Address:[address] [place] [address] City:[place] Alternate Phone: [facility]/Zip Code:[place] [address] Email: Financial Information Financial Class:Medicare Primary Plan Desc:MEDICARE INPATIENT Primary Plan Number:[id number] Secondary Plan Desc:[facility] Secondary Plan Number:[id number] Assessment Information LACE LACE Length of stay for Answers: 4-6 days current admission Acuity / Level of Answers: Yes Care: Did the patient have an inpatient admission? # of Emergency department Answers: 1-2 visits in the last 6 months Score: 8 Date Signed: 03/20/2018 12:31 PM Electronically Signed By:Debbie Mtz RN [facility] CM Progress Note CM Note CM Note Notes: 03/16/2018 Case Management Note Reviewed chart. Pt admitted for treatment of severe anemia. There are no therapy evals ordered at this time. Discharge needs and date are unclear at this time. Pt is and was independent with ADL's prior to admission. Anticipating independent discharge with follow up as directed. Case Management d/c poc: to be determined. Case Management to follow Date Signed: 03/16/2018 04:05 PM Electronically Signed By:Debbie Mtz RN [facility] CM Progress Note CM Note CM Note Notes: Chart reviewed for discharge planning purposes. Patient normally independent with ADL's admitted with profound anemia. 4 Units PRBC attributed to diastolic heart failure. Severe MR. GI workup deferred at this time. No current needs identified. CM available should needs arise. Plan: dc to home with family when medically cleared. Date Signed: 03/19/2018 10:48 AM Electronically Signed By:Libby Monreal RN Case Management Discharge Plan Note Case Management Discharge Discharge Order Complete? Answers: Yes Patient to Obtain Answers: via Family Medications Transportation Arranged Answers: Family/Friends Discharge Comments Notes: 03/20/2018 Case Mangement Note Pt to discharge home without any case mangement needs. Case Management d/c poc: independent with follow up as directed. Date Signed: 03/20/2018 12:33 PM Electronically Signed By:Debbie Mtz RN Intervention Information Intervention Type:*IM-Signed Date of Service:03/20/2018 12:06 PM Patient Type:Inpatient Staff Member:Carley Solis Hours: Discipline: Severity: Comment:
== END 2018-03-20 14:55 | disposition home or self-care (01) | DRG 811 ==
LOC: F1N 18:44 → F2W 03-16 16:55
PROVIDERS: ADMIT Internal Medicine; ATTEND Internal Medicine
PROC: 30233N1 Transfusion of Nonautologous Red Blood Cells into Peripheral Vein, Percutaneous Approach (ICD-10-PCS; principal; 2018-03-15)
PROC: 0DJD8ZZ Inspection of Lower Intestinal Tract, Via Natural or Artificial Opening Endoscopic (ICD-10-PCS; 2018-03-19 13:15)
PROC: 0DB98ZX Excision of Duodenum, Via Natural or Artificial Opening Endoscopic, Diagnostic (ICD-10-PCS; 2018-03-19 13:15)
DX: D50.9 Iron deficiency anemia, unspecified (principal); I08.1 Rheumatic disorders of both mitral and tricuspid valves; I50.31 Acute diastolic (congestive) heart failure; E87.1 Hypo-osmolality and hyponatremia; E87.70 Fluid overload, unspecified; Z80.0 Family history of malignant neoplasm of digestive organs; R09.02 Hypoxemia; E87.6 Hypokalemia; K25.9 Gastric ulcer, unspecified as acute or chronic, without hemorrhage or perforation
CPT/HCPCS: 82607-90; J1940; J2704; J2916; J3475; P9016

== ENCOUNTER → 2018-04-16 | Outpatient (CLI) | payer OTHER | LOC: CIMAGING 10:48 | DX: Z12.31 Encounter for screening mammogram for malignant neoplasm of breast (principal) ==